=== PATIENT | female | born 1990 | race Two or more races ===

== ENCOUNTER 2022-02-17 08:17 | Emergency (ER) | payer OTHER ==
[~2022-02-17] VITALS: Ht 162.6 cm; Wt 81.6 kg
== END 2022-02-17 12:31 | disposition home or self-care (01) ==
LOC: ER 08:17
DX: A05.9 Bacterial foodborne intoxication, unspecified (principal); R10.84 Generalized abdominal pain; R11.2 Nausea with vomiting, unspecified; Z20.822 Contact with and (suspected) exposure to COVID-19